=== PATIENT | female | born 1960 | race Caucasian/White ===

== ENCOUNTER → 2016-11-08 | Outpatient (CLI) | payer OTHER ==
[~2016-11-08] MED LIST: ATEN-173 PO; PRLSR20 PO; SPIR50TA2 PO
--- NOTE | 2016-11-08 16:55 | DIAGNOSTIC IMAGING REPORT ---
ULTRASOUND VENOUS DOPPLER LWR EXT BILA CLINICAL HISTORY: Leg swelling. Suspected bilateral DVT. LEG PAIN COMPARISON STUDY: No previous studies for comparison. FINDINGS: Real-time and color flow Doppler imaging were performed. Flow was seen within the femoral, popliteal and calf veins with no intraluminal thrombus demonstrated. The saphenous vein is patent. There is a small left popliteal cyst measuring 25 x 29 x 10 mm. IMPRESSION: No evidence of lower extremity DVT. Electronically signed by: Jerson Webb M.D. 11/08/2016 4:53 PM Dictated Date/Time: 11/08/2016 4:52 PM
== END | disposition home or self-care (01) ==
LOC: C.ULTR 16:07
PROVIDERS: ATTEND Internal Medicine Hematology
DX: I82.492 Acute embolism and thrombosis of other specified deep vein of left lower extremity (principal)

== ENCOUNTER 2019-09-08 13:29 | Observation (INO) ==
[2019-09-08] MEDS ORDERED: ONDANSETRON INJ 2 MG/ML 2 ML VIAL IV STA ×2 (14:07→18:29)
[2019-09-08] MEDS ORDERED: MoRPHine SULFATE 4 MG/ML 1 ML CARP\\VIAL IV STA ×2 (14:07→18:29)
[2019-09-08] MEDS ORDERED: SODIUM CHLORIDE 0.9% 1000ML 1,000 ML IV ONE (14:07)
[2019-09-08 14:36] LABS: Basophils # (auto) 0.01 K/uL (0-0.2); Basophils % (auto) 0.2 %; Hematocrit (blood only) 38.3 % (37-47); Hemoglobin 13.3 g/dL (12.0-16.0); Immature Granulocytes # (auto) 0.02 K/uL (0.00-0.02); Immature Granulocytes % (auto) 0.4 %; Lymphocytes # (auto) 0.63 K/uL (1.2-3.4); Lymphocytes % (auto) 11.4 %; Mean Corpuscular Hemoglobin 32.7 pg (25-34); Mean Corpuscular Hgb Conc 34.7 g/dL (32-36); Mean Corpuscular Volume 94.1 fL (80-100); Mean Platelet Volume 9.7 fL (7.4-10.4); Monocytes # (auto) 0.31 K/uL (0.11-0.59); Monocytes % (auto) 5.6 %; Neutrophils # (auto) 4.55 K/uL (1.4-6.5); Neutrophils % (auto) 82.4 %; Platelet Count 184 K/uL (130-400); RDW Coefficient of Variation 12.5 % (11.5-14.5); RDW Standard Deviation 42.7 fL (36.4-46.3); Red Blood Count 4.07 M/uL (4.2-5.4); White Blood Count 5.52 K/uL (4.8-10.8)
[2019-09-08 14:58] LABS: Albumin Level 3.8 gm/dl (3.4-5.0); BUN Creatinine Ratio 13.8 (10-20); Calcium 9.4 mg/dl (8.5-10.1); Est GFR (African American) 100.9; Est GFR (Non-African American) 87.1
[2019-09-08 15:00] LABS: Appearance Urine Clear (Clear); Bilirubin Urine Negative (Negative); Blood Urine Negative (Negative); Color Urine Dark Yellow; Glucose Urine UA Negative (Negative); Ketones Urine 1+ (Negative); Leukocyte Esterase Urine Negative (Negative); Nitrite Urine Negative (Negative); Protein Urine Negative (Negative); Specific Gravity Urine 1.025 (1.000-1.030); Urobilinogen Urine Negative (Negative); pH Urine 7.5 (4.5-7.5)
[2019-09-08 15:01] LABS: Bilirubin,Total 0.5 mg/dl (0.2-1); Globulin 3.6 gm/dl (2.5-4.0); Total Protein 7.4 gm/dl (6.4-8.2)
[2019-09-08] MEDS ORDERED: IOVERSOL 100ml IV PRN (16:18)
--- NOTE | 2019-09-08 16:51 | CT Scan Report ---
CT abd pelvis IV con only CT DOSE: 962.29 mGycm HISTORY: Pain diffuse ab pain TECHNIQUE: Multiaxial CT images of the abdomen and pelvis were performed following the use of intrave nous contrast. A dose lowering technique was utilized adhering to the principles of ALARA. COMPARISON STUDY: None. FINDINGS: Lung bases are clear. Liver spleen and pancreas are unremarkable. Mild gallbladder wall edematous change. No well-defined gallstones by CT criteria. Kidneys enhance uniformly. No evidence for hydronephrosis. Nonobstructive bowel pattern. Scattered colonic diverticulosis. No evidence for acute diverticulitis. Normal appendix. Bladder is midline. No free fluid within the abdominal or pelvic region. IMPRESSION: 1. Mild gallbladder wall edema versus trace amount of pericholecystic fluid. 2. Right upper quadrant ultrasonography is suggested. 3. Mild chronic colonic diverticulosis. 4. Study is otherwise negative The above report was generated using voice recognition software. It may contain grammatical, syntax or spelling errors. Electronically signed by: Neville Botello M.D. 09/08/2019 4:50 PM
--- NOTE | 2019-09-08 17:53 | Ultrasound Report ---
US gallbladder HISTORY: Abnormal CT exam. Pain. pericholecystic fluid on CT? ab pain COMPARISON: CT exam same date FINDINGS: Liver is uniform. Pancreas is unremarkable. Moderate edematous change of the gallbladder wall 6 mm. Trace amount of pericholecystic fluid. At least 2 small gallstones. Common bile duct 6 mm. Right kidney is negative for hydronephrosis. IMPRESSION: 1. Acute cholecystitis. 2. Normal caliber bile ducts. The above report was generated using voice recognition software. It may contain grammatical, syntax or spelling errors. Electronically signed by: Neville Botello M.D. 09/08/2019 5:52 PM
[2019-09-08] MEDS ORDERED: SODIUM CHLORIDE 0.9% 1000ML 1,000 ML IV SCH (18:30)
--- NOTE | 2019-09-08 19:49 | Emergency Department Note ---
Entered by Matilde Barrera acting as a scribe for History of Present Illness General Chief complaint: Abdominal Pain Stated complaint: ABDOMINAL PAIN AND BACK Time Seen by Provider: 09/08/19 13:50 Source: patient History of Present Illness Onset (ago): day(s) (last night) Location: abdomen Radiation: back Pain Consistency: + constant Maximum Pain Intensity: 8 Quality: + sharp Associated symptoms: + denies other symptoms (urinary symptoms), + loss of appetite and + nausea/vomiting The patient is a 59 year old female w/ PMHx gallstones, HTN, hysterectomy, endometrial adenocarcinoma, follicular lymphoma, constipation who presents to the ED w/ CC of constant abdominal pain starting last night. The patient states that she started having this upper abdominal pain that radiates down into her lower abdomen and all the way through to her entire back. She reports that it is a sharp pain and when it gets bad, she vomits. The patient notes that she has had constipation in the past, but moved her bowels yesterday and had a small bowel movement today. The patient complains of loss of appetite and nausea. She notes that she is still passing gas. The patient denies recent trauma, recent heavy lifting, urinary symptoms, taking anything for the pain, a history of a cholecystectomy, and a history of an appendectomy. Home Medications Home Medications Medication Instructions Recorded Confirmed Type atenolol 25 mg PO QAM 09/08/19 09/08/19 History multivitamin 1 tab PO HS 09/08/19 09/08/19 History omeprazole 20 mg PO QAM 09/08/19 09/08/19 History spironolactone 50 mg PO QAM 09/08/19 09/08/19 History Allergies Allergy/AdvReac Type Severity Reaction Status Date / Time lisinopril Allergy Intermediate Cough Verified 09/08/19 14:25 Past Med/Surg History Medical History Endometrial adenocarcinoma (Resolved 08/04/15) "DIAGNOSIS: Endometrial adenocarcinoma, FIGO Grade 2, FIGO stage IA Status post total abdominal hysterectomy bilateral salpingo-oophorectomy 09/29/2015 Status post completion of radiation therapy utilizing external beam therapy as well as HDR treatments received 4500 cGy external beam therapy and 1200 cGy HDR treatments completed 12/28/2015" On 11/01/15 16:08 Veeral Serrano wrote "DIAGNOSIS: Non-hodgkin's lymphoma, follicular lymphoma, grade 1/2, stage IAE -Involvement of the para-aortic and iliac lymph nodes" Follicular lymphoma (Chronic 08/04/15) "TREATMENT: [facility] - 09/29/2015 ([facility])DIAGNOSIS: Non-hodgkin's lymphoma, follicular lymphoma, grade 1/2, stage IAE -Involvement of the para-aortic and iliac lymph nodes" On 11/01/15 16:07 Jaynadavid Serrano wrote "DIAGNOSIS: Endometrial adenocarcinoma, FIGO Grade 2, FIGO stage IA TREATMENT: [facility] - 09/29/2015 ([facility])" History of gallstones HTN (hypertension) Hx of constipation Hx of hysterectomy Family History Other No significant family history Social History marital status: Current Living Situation: Spouse current occupational status: employed Feels Safe at Home: Yes Smoking Status: Never smoker Review of Systems See HPI for pertinent positives & negatives. and A total of 10 systems reviewed and were otherwise negative Physical Exam Vital Signs Vital Signs - 24 hr 09/08/19 13:31 09/08/19 14:43 09/08/19 16:11 Temperature 36.7 C Temperature Source Oral Pulse Rate 89 72 Pulse Rate [Apical] 67 Pulse Rate from SpO2 Sensor 72 Respiratory Rate 18 17 18 Respiratory Effort / Characteristics Non-Labored Spontaneous Non-Labored Respiratory Depth Normal Normal Blood Pressure 178/111 H 153/91 H Blood Pressure [Left Arm] 138/78 Blood Pressure Mean 133 108 Blood Pressure Mean [Left Arm] 98 Pulse Oximetry 97 92 98 Oxygen Delivery Method Room Air Room Air Sepsis Recent Fever Within 48 Hours No Sepsis New/Unexplained Change in Mental Status No Sepsis Action Taken by Nursing No Action Required 09/08/19 17:06 09/08/19 18:25 09/08/19 19:30 Temperature Temperature Source Pulse Rate Pulse Rate [Apical] 64 72 73 Pulse Rate from SpO2 Sensor Respiratory Rate 18 18 18 Respiratory Effort / Characteristics Non-Labored Non-Labored Respiratory Depth Normal Normal Blood Pressure Blood Pressure [Left Arm] 125/78 141/98 H 139/92 Blood Pressure Mean Blood Pressure Mean [Left Arm] 93 112 107 Pulse Oximetry 97 96 97 Oxygen Delivery Method Room Air Room Air Room Air Sepsis Recent Fever Within 48 Hours Sepsis New/Unexplained Change in Mental Status Sepsis Action Taken by Nursing GENERAL: Well appearing, well nourished, NAD, non-toxic. EYE EXAM: Normal conjunctiva. PERRL, no anisocoria and EOM's grossly intact w/o pain. OROPHARYNX: Moist mucous membranes. Grossly normal dentition. NECK: Supple, no nuchal rigidity, no adenopathy, non-tender. No signs of meningismus. LUNGS: Clear to auscultation. Normal chest wall mechanics. HEART: NSR, no MRG. ABDOMEN: Abdomen soft, mild diffuse abdominal pain worst in upper abdomen, not peritonitic, negative obturators, negative psoas, normo-active bowel sounds, no masses, no rebound or guarding. BACK: No CVA TTP. SKIN: No rashes and no bruising. UPPER EXTREMITIES: Upper extremities are grossly normal. LOWER EXTREMITIES: No pitting edema. No calf pain. NEURO EXAM: A&O x3, cranial nerves II-XII grossly intact, normal speech, moves all 4 extremities on command w/o issue. Course Course 1356: The patient was evaluated in room C11B. A complete history and physical exam was performed. 175: I reevaluated the patient and her pain is improved. I updated her on her test results and the treatment plan at this time. She verbally agrees and understands. 180: I discussed the patient's case with Dr. Sulma Alejandro Surgery. He recommends admitting the patient to medicine. 1827: I discussed the patient's case with Dr. [facility]. He requests that the patient be admitted under Dr. Juarez's service of General Surgery. 183: I discussed the patient's case with Dr. Sulma Alejandro Surgery. He will evaluate the patient for further management. Administered Medications Sodium Chloride (Nss 1000ml) 1,000 mls @ 125 mls/hr IV .Q8H BENNY Stop: 10/08/19 18:29 Last Admin: 09/08/19 18:38 Dose: 125 mls/hr Documented by: [id number] Ioversol (Optiray 320 100ml) 90 ml IV ONCE PRN PRN Reason: Interaction Checking Stop: 09/12/19 16:17 Last Admin: 09/08/19 16:20 Dose: 90 ml Documented by: [id number] Discontinued Medications Sodium Chloride (Nss 1000ml) 1,000 mls @ 999 mls/hr IV .Q1H1M ONE Stop: 09/08/19 15:07 Last Infusion: 09/08/19 15:37 Dose: 0 mls/hr Documented by: [id number] Admin: 09/08/19 14:37 Dose: 999 mls/hr Documented by: [id number] Morphine Sulfate (Morphine Sulfate) 4 mg IV NOW STA Stop: 09/08/19 14:08 Last Admin: 09/08/19 14:37 Dose: 4 mg Documented by: [id number] Morphine Sulfate (Morphine Sulfate) 4 mg IV NOW STA Stop: 09/08/19 18:30 Last Admin: 09/08/19 18:38 Dose: 4 mg Documented by: [id number] Ondansetron HCl (Zofran) 4 mg IV NOW STA Stop: 09/08/19 14:08 Last Admin: 09/08/19 14:37 Dose: 4 mg Documented by: [id number] Ondansetron HCl (Zofran) 4 mg IV NOW STA Stop: 09/08/19 18:30 Last Admin: 09/08/19 18:38 Dose: 4 mg Documented by: [id number] Medical Decision Making Differential Diagnosis Differential diagnoses includes but is not limited to gastritis, peptic ulcer disease, GERD, gallbladder disease, pancreatitis, small bowel obstruction, acute coronary syndrome, pericarditis, ischemic bowel, irritable bowel disease, irritable bowel syndrome, appendicitis, diverticulitis, malignancy, hernia, urinary tract infection, torsion, /ectopic , perforation, trauma, infectious. Medical Records Attestation: I reviewed the patient's medical records. Home Medications Current Medication List: was personally reviewed by me Laboratory Data Attestation: I reviewed the patient's lab results. Result diagrams: 09/08/19 14:20 09/08/19 14:20 Lab Results 09/08/19 09/08/19 09/08/19 Range/Units 14:20 14:20 14:39 WBC 5.52 (4.8-10.8) K/uL RBC 4.07 L (4.2-5.4) M/uL Hgb 13.3 (12.0-16.0) g/dL Hct 38.3 (37-47) % MCV 94.1 (80-100) fL MCH 32.7 (25-34) pg MCHC 34.7 (32-36) g/dL RDW Std Deviation 42.7 (36.4-46.3) fL RDW Coeff of Syed 12.5 (11.5-14.5) % Plt Count 184 (130-400) K/uL MPV 9.7 (7.4-10.4) fL Immature Gran % (Auto) 0.4 % Neut % (Auto) 82.4 % Lymph % (Auto) 11.4 % [place] % (Auto) 5.6 % Eos % (Auto) 0.0 % Baso % (Auto) 0.2 % Immature Gran # (Auto) 0.02 (0.00-0.02) K/uL Neut # (Auto) 4.55 (1.4-6.5) K/uL Lymph # (Auto) 0.63 L (1.2-3.4) K/uL [place] # (Auto) 0.31 (0.11-0.59) K/uL Eos # (Auto) 0.00 (0-0.5) K/uL Baso # (Auto) 0.01 (0-0.2) K/uL Sodium 134 L (136-145) mmol/L Potassium 4.0 (3.5-5.1) mmol/L Chloride 101 (98-107) mmol/L Carbon Dioxide 25 (21-32) mmol/L Anion Gap 8.0 (3-11) BUN 10 (7-18) mg/dl Creatinine 0.76 (0.6-1.2) mg/dl Est Cr Clr Drug Dosing 88.0 ml/min Est GFR ( Amer) 100.9 Est GFR (Non-Af Amer) 87.1 BUN/Creatinine Ratio 13.8 (10-20) Glucose 121 H (70-99) mg/dl Calcium 9.4 (8.5-10.1) mg/dl Total Bilirubin 0.5 (0.2-1) mg/dl AST 18 (15-37) U/L ALT 26 (12-78) U/L Alkaline Phosphatase 64 (45-117) U/L Total Protein 7.4 (6.4-8.2) gm/dl Albumin 3.8 (3.4-5.0) gm/dl Globulin 3.6 (2.5-4.0) gm/dl Albumin/Globulin Ratio 1.0 (0.9-2) Lipase 50 L (73-393) U/L Urine Color Dark Yellow Urine Appearance Clear (Clear) Urine pH 7.5 (4.5-7.5) Ur Specific [place] 1.025 (1.000-1.030) Urine Protein Negative (Negative) Urine Glucose (UA) Negative (Negative) Urine Ketones 1+ H (Negative) Urine Blood Negative (Negative) Urine Nitrite Negative (Negative) Urine Bilirubin Negative (Negative) Urine Urobilinogen Negative (Negative) Ur Leukocyte Esterase Negative (Negative) Imaging Data Radiologist's Impression: Radiology results as stated below per my review and the radiologist's interpretation: US gallbladder HISTORY: Abnormal CT exam. Pain. pericholecystic fluid on CT? ab pain COMPARISON: CT exam same date FINDINGS: Liver is uniform. Pancreas is unremarkable. Moderate edematous change of the gallbladder wall 6 mm. Trace amount of pericholecystic fluid. At least 2 small gallstones. Common bile duct 6 mm. Right kidney is negative for hydronephrosis. IMPRESSION: 1. Acute cholecystitis. 2. Normal caliber bile ducts. The above report was generated using voice recognition software. It may contain grammatical, syntax or spelling errors. Electronically signed by: Neville Botello M.D. 09/08/2019 5:[address] abd pelvis IV con only CT DOSE: 962.29 mGycm HISTORY: Pain diffuse ab pain TECHNIQUE: Multiaxial CT images of the abdomen and pelvis were performed following the use of intravenous contrast. A dose lowering technique was utilized adhering to the principles of ALARA. COMPARISON STUDY: None. FINDINGS: Lung bases are clear. Liver spleen and pancreas are unremarkable. Mild gallbladder wall edematous change. No well-defined gallstones by CT criteria. Kidneys enhance uniformly. No evidence for hydronephrosis. Nonobstructive bowel pattern. Scattered colonic diverticulosis. No evidence for acute diverticulitis. Normal appendix. Bladder is midline. No free fluid within the abdominal or pelvic region. IMPRESSION: 1. Mild gallbladder wall edema versus trace amount of pericholecystic fluid. 2. Right upper quadrant ultrasonography is suggested. 3. Mild chronic colonic diverticulosis. 4. Study is otherwise negative The above report was generated using voice recognition software. It may contain grammatical, syntax or spelling errors. Electronically signed by: Neville Botello M.D. 09/08/2019 4:50 PM Blood Pressure Blood Pressure Findings: Elevated blood pressure Blood Pressure Disposition: Referred to patients primary care provider CLARIBEL Narrative The patient is a 59 year old female w/ PMHx gallstones, HTN, hysterectomy, endometrial adenocarcinoma, follicular lymphoma, constipation who presents to the ED w/ CC of constant abdominal pain starting last night. Patient was seen and evaluated the bedside. The patient was complaining some abdominal pain. Patient blood work is unremarkable. Patient does not complain of any shortness of breath or chest pains. Patient did have a CT abdomen pelvis after receiving IV fluids and pain and not a nausea medication. She has stable vitals. The patient has a normal white count LFTs and lipase. Patient CT did show diverticulosis but more concerning some questionable pericholecystic fluid. Gallbladder ultrasound was ordered. This was concerning for acute cholecystitis. I did speak with both the hospitalist as well as the [facility]eral surgery service. General surgery will admit with a medicine consult. The patient was given additional medications told to be n.p.o. and started on IV fluids. Patient was admitted to general surgery. Impression & Plan Acute cholecystitis, Abdominal pain Discharge Plan Visit Data Chief Complaint: Abdominal Pain Stated Complaint: ABDOMINAL PAIN AND BACK ED Provider: Easton Augustine Discharge Problem: Acute cholecystitis, Abdominal pain Patient Disposition: Being Evaluated by Surgeon Forms Stand Alone Forms: Call Back Authorization, [facility] Prescriptions Prescriptions: No Action multivitamin Tablet 1 tab PO HS RF: 0 atenolol 25 mg tablet 25 mg PO QAM RF: 0 omeprazole 20 mg capsule,delayed release(DR/EC) 20 mg PO QAM RF: 0 spironolactone 50 mg tablet 50 mg PO QAM RF: 0 Referrals Referrals: Alta Bolanos DO [Primary Care Provider] - Discharge Problem: Abdominal pain Qualifiers: Abdominal location: generalized Qualified Code(s): R10.84 - Generalized abdominal pain The scribe's documentation has been prepared under my direction and personally reviewed by me in its entirety. I confirm that the note above accurately reflects all work, treatment, procedures, and medical decision making performed by me.
--- NOTE | 2019-09-08 19:57 | Surgery Consultation ---
Date of Consultation September 08, 2019 Assessment & Plan (1) Acute cholecystitis: pt is a 59 year old female who presents to ER with one day history RUQ pain, IMP: acute cholecystitis, cholelithiasis Plan, I recommend to admitted to hospital, NPO, IV fluid, antibiotic, control pain, to do laparoscopic cholecystectomy, possible open or cholangiogram tomorrow, D/W benefits, risks and alternatives of the surgery, the risks - infection, bleeding, injury CBD, biliary leak, may need ERCP, pt understood, she and her agree with the surgery, I answered all questions, Present on Admission?: Yes History of Present Illness History of Present Illness CC: RUQ pain HPI: pt is a 59 year-old female who presents to ER with one day history RUQ pain , the pain started at 7::00PM last night, the pain is located at RUQ and right back, pt denies nausea, no vomiting, no fever, no diarrhea, last BM today, pt had hysterectomy for cancer 4 mariya ago with abdominal lymph node resection, today, pt has been known that she has gallstone one mariya ago. pt had CT scan and U/S study diagnosis- acute cholecystitis with cholelithiasis, HTN history , otherwise pt is health. Allergies Allergy/AdvReac Type Severity Reaction Status Date / Time lisinopril Allergy Intermediate Cough Verified 09/08/19 14:25 Home Medications Home Medications Medication Instructions Recorded Confirmed Type atenolol 25 mg PO QAM 09/08/19 09/08/19 History multivitamin 1 tab PO HS 09/08/19 09/08/19 History omeprazole 20 mg PO QAM 09/08/19 09/08/19 History spironolactone 50 mg PO QAM 09/08/19 09/08/19 History Patient History Medical History Endometrial adenocarcinoma (Resolved 08/04/15) "DIAGNOSIS: Endometrial adenocarcinoma, FIGO Grade 2, FIGO stage IA Status post total abdominal hysterectomy bilateral salpingo-oophorectomy 09/29/2015 Status post completion of radiation therapy utilizing external beam therapy as well as HDR treatments received 4500 cGy external beam therapy and 1200 cGy HDR treatments completed 12/28/2015" On 11/01/15 16:08 Dhaval Serrano wrote "DIAGNOSIS: Non-hodgkin's lymphoma, follicular lymphoma, 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, stage IAE -Involvement of the para-aortic and iliac lymph nodes" Follicular lymphoma (Chronic 08/04/15) "TREATMENT: [facility] - 09/29/2015 [facility])DIAGNOSIS: Non-hodgkin's lymphoma, follicular lymphoma, 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, stage IAE -Involvement of the para-aortic and iliac lymph nodes" On 11/01/15 16:07 Jaynadavid Serrano wrote "DIAGNOSIS: Endometrial adenocarcinoma, FIGO Grade 2, FIGO stage IA TREATMENT: [facility] - 09/29/2015 ([facility])" History of gallstones HTN (hypertension) Hx of constipation Hx of hysterectomy Family History Other No significant family history Social History marital status: Current Living Situation: Spouse current occupational status: employed Feels Safe at Home: Yes Smoking Status: Never smoker Review of Systems Review of Systems: All systems reviewed & are unremarkable except as noted in HPI & below Physical Exam Constitutional: WD/WN, vitals as above well developed and well nourished ENMT: external ear and nose normal, oropharynx normal Neck: trachea midline, no thyromegaly Respiratory: normal respiratory effort, lungs clear to auscultation normal respiratory effort Cardiovascular: RRR, no murmur, no edema Rate/Rhythm: regular rate and regular rhythm Heart Sounds: normal S1 and normal S2 Gastrointestinal (Abdomen): normal bowel sounds, soft, nontender, no hepatosplenomegaly Percussion/Palpation: + abdomen tender and abdomen soft middle line scar, tenderness at RUQ, no rebound pain, no distend, BS +, Musculoskeletal: no cyanosis or clubbing, extremities motor strength 5/5 Skin: no rashes, warm and dry Neurologic: patellar DTR's 2+ bilat, sensation intact Psychiatric: Orientation: alert and oriented x 3 Lymphatic: no cervical or axillary lymphadenopathy Results & Data Vital Signs (Past 12 Hours) Vital Signs Temp Pulse Pulse Resp BP BP Pulse Ox 09/08/19 19:30 73 18 139/92 97 09/08/19 18:25 72 18 141/98 H 96 09/08/19 17:06 64 18 125/78 97 09/08/19 16:11 67 18 138/78 98 09/08/19 14:43 72 17 153/91 H 92 09/08/19 13:31 36.7 C 89 18 178/111 H 97 Laboratory Results Abnormal lab results 09/08/19 09/08/19 09/08/19 Range/Units 14:20 14:20 14:39 RBC 4.07 L (4.2-5.4) M/uL Lymph # (Auto) 0.63 L (1.2-3.4) K/uL Sodium 134 L (136-145) mmol/L Glucose 121 H (70-99) mg/dl Lipase 50 L (73-393) U/L Urine Ketones 1+ H (Negative) Diagnostic Findings US gallbladder HISTORY: Abnormal CT exam. Pain. pericholecystic fluid on CT? ab pain COMPARISON: CT exam same date FINDINGS: Liver is uniform. Pancreas is unremarkable. Moderate edematous change of the gallbladder wall 6 mm. Trace amount of pericholecystic fluid. At least 2 small gallstones. Common bile duct 6 mm. Right kidney is negative for hydronephrosis. IMPRESSION: 1. Acute cholecystitis. 2. Normal caliber bile ducts. CT abd pelvis IV con only CT DOSE: 962.29 mGycm HISTORY: Pain diffuse ab pain TECHNIQUE: Multiaxial CT images of the abdomen and pelvis were performed following the use of intravenous contrast. A dose lowering technique was utilized adhering to the principles of ALARA. COMPARISON STUDY: None. FINDINGS: Lung bases are clear. Liver spleen and pancreas are unremarkable. Mild gallbladder wall edematous change. No well-defined gallstones by CT criteria. Kidneys enhance uniformly. No evidence for hydronephrosis. Nonobstructive bowel pattern. Scattered colonic diverticulosis. No evidence for acute diverticulitis. Normal appendix. Bladder is midline. No free fluid within the abdominal or pelvic region. IMPRESSION: 1. Mild gallbladder wall edema versus trace amount of pericholecystic fluid. 2. Right upper quadrant ultrasonography is suggested. 3. Mild chronic colonic diverticulosis. 4. Study is otherwise negative
[2019-09-08] MEDS ORDERED: OXYCODONE/ACETAMINOPHEN 5mg/325mg TAB PO PRN (21:01)
[2019-09-08] MEDS ORDERED: PIPERACILL/TAZOBAC CONSULT ACTIVE PRN (21:01)
[2019-09-08] MEDS ORDERED: HYDROmorphone INJ 0.5 MG/0.5 ML SYR IV PRN (21:01)
[2019-09-08] MEDS ORDERED: PIPERACILLIN/TAZOBACTAM 3.375 GM in DEXTROSE 5% 100 ML IV ONE (21:15)
[2019-09-08] MEDS: LACTATED RINGER'S 1,000 ML IV SCH (21:21)
[2019-09-08 21:29] LABS: Basophils # (auto) 0.01 K/uL (0-0.2); Basophils % (auto) 0.2 %; Eosinophils # (auto) 0.02 K/uL (0-0.5); Eosinophils % (auto) 0.4 %; Hemoglobin 13.3 g/dL (12.0-16.0); Immature Granulocytes # (auto) 0.01 K/uL (0.00-0.02); Immature Granulocytes % (auto) 0.2 %; Lymphocytes # (auto) 1.04 K/uL (1.2-3.4); Mean Corpuscular Hemoglobin 32.8 pg (25-34); Mean Corpuscular Hgb Conc 34.1 g/dL (32-36); Mean Corpuscular Volume 96.1 fL (80-100); Mean Platelet Volume 9.7 fL (7.4-10.4); Monocytes # (auto) 0.35 K/uL (0.11-0.59); Monocytes % (auto) 7.1 %; Neutrophils # (auto) 3.52 K/uL (1.4-6.5); Neutrophils % (auto) 71.1 %; Platelet Count 169 K/uL (130-400); RDW Coefficient of Variation 12.7 % (11.5-14.5); RDW Standard Deviation 44.1 fL (36.4-46.3); Red Blood Count 4.06 M/uL (4.2-5.4); White Blood Count 4.95 K/uL (4.8-10.8)
[2019-09-08] MEDS: MULTIVITAMIN TAB PO SCH (22:06)
[2019-09-09] MEDS: PIPERACILLIN/TAZOBACTAM 3.375 GM in DEXTROSE 5% 100 ML IV SCH ×2 (03:37→12:32)
[2019-09-09 06:09] LABS: Basophils # (auto) 0.01 K/uL (0-0.2); Basophils % (auto) 0.3 %; Eosinophils # (auto) 0.03 K/uL (0-0.5); Hematocrit (blood only) 36.4 % (37-47); Hemoglobin 12.3 g/dL (12.0-16.0); Lymphocytes # (auto) 0.67 K/uL (1.2-3.4); Lymphocytes % (auto) 21.8 %; Mean Corpuscular Hemoglobin 32.6 pg (25-34); Mean Corpuscular Hgb Conc 33.8 g/dL (32-36); Mean Corpuscular Volume 96.6 fL (80-100); Mean Platelet Volume 9.6 fL (7.4-10.4); Monocytes % (auto) 9.8 %; Neutrophils # (auto) 2.06 K/uL (1.4-6.5); Neutrophils % (auto) 67.1 %; Platelet Count 158 K/uL (130-400); RDW Standard Deviation 45.2 fL (36.4-46.3); Red Blood Count 3.77 M/uL (4.2-5.4); White Blood Count 3.07 K/uL (4.8-10.8)
[2019-09-09 06:39] LABS: Albumin Level 3.2 gm/dl (3.4-5.0); BUN Creatinine Ratio 9.9 (10-20); Bilirubin,Total 0.8 mg/dl (0.2-1); Calcium 8.8 mg/dl (8.5-10.1); Creatinine Clr Calc Pharmacy 82.5 ml/min; Est GFR (African American) 93.4; Est GFR (Non-African American) 80.6; Globulin 3.2 gm/dl (2.5-4.0); Potassium 3.4 mmol/L (3.5-5.1); Total Protein 6.4 gm/dl (6.4-8.2)
[2019-09-09] MEDS: SPIRONOLACTONE 25 MG TAB PO SCH (08:38)
[2019-09-09] MEDS: ATENOLOL 25 MG TABLET PO SCH (08:38)
[2019-09-09] MEDS: PANTOprazole 40 MG TAB PO SCH (08:38)
[2019-09-09] MEDS: LACTATED RINGER'S 1,000 ML IV SCH ×2 (09:36→17:59)
--- NOTE | 2019-09-09 10:14 | Anesthesiology Consultation ---
Date of Service September 09, 2019 Assessment & Plan Chart Review Chart Review: Acceptable Risk for Surgery and Patient NOT seen in Pre Admission Testing Consults Requested none ASA ASA3 Proposed Anesthesia Anesthesia Type: General History Surgery Operation Date: 09/09/19 07:00 Proposed Procedures p Laparoscopic Cholecystectomy - Dl Juarez MD Height/Weight Height: 5 ft 4 in Weight: 88.5 kg Allergies Allergy/AdvReac Type Severity Reaction Status Date / Time lisinopril Allergy Intermediate Cough Verified 09/08/19 14:25 Medications Home Medications Medication Instructions Recorded Confirmed Last Taken atenolol 25 mg PO QAM 09/08/19 09/08/19 09/07/19 multivitamin 1 tab PO HS 09/08/19 09/08/19 09/07/19 omeprazole 20 mg PO QAM 09/08/19 09/08/19 09/07/19 spironolactone 50 mg PO QAM 09/08/19 09/08/19 09/07/19 Active Medications Generic Name Dose Route Start Last Admin Trade Name Freq PRN Reason Stop Dose Admin Atenolol 25 mg 09/09/19 09:00 09/09/19 08:38 Tenormin PO 10/09/19 08:59 25 mg QAM BENNY Administration Lactated Ringer's 1,000 mls @ 80 mls/hr 09/08/19 21:01 09/09/19 09:36 Lr IV 10/08/19 21:00 80 mls/hr .[id number] BENNY Administration Piperacillin Sod/Tazobactam 115 mls @ 28.75 mls/hr 09/09/19 03:00 09/09/19 07:54 Sod 3.375 gm/ Dextrose IV 09/11/19 02:59 Infused Q8H BENNY Infusion Protocol Ioversol 90 ml 09/08/19 16:18 09/08/19 16:20 Optiray 320 100ml IV 09/12/19 16:17 90 ml ONCE PRN Administration Interaction Checking Multivitamins 1 tab 09/08/19 21:01 09/08/19 22:06 Multivitamin Tab PO 10/08/19 21:00 1 tab HS BENNY Administration Pantoprazole Sodium 40 mg 09/09/19 09:00 09/09/19 08:38 Protonix PO 10/09/19 08:59 40 mg QAM BENNY Administration Spironolactone 50 mg 09/09/19 09:00 09/09/19 08:38 Aldactone PO 10/09/19 08:59 50 mg QAM BENNY Administration NPO Date Last Intake of Fluids: 09/08/19 Time Last Intake of Fluids: 23:22 Date Last Intake of Solids: 09/08/19 Time Last Intake of Solids: 17:00 Past Medical History Medical History Endometrial adenocarcinoma (Resolved 08/04/15) "DIAGNOSIS: Endometrial adenocarcinoma, FIGO Grade 2, FIGO stage IA Status post total abdominal hysterectomy bilateral salpingo-oophorectomy 09/29/2015 Status post completion of radiation therapy utilizing external beam therapy as well as HDR treatments received 4500 cGy external beam therapy and 1200 cGy HDR treatments completed 12/28/2015" On 11/01/15 16:08 Dhaval Serrano wrote "DIAGNOSIS: Non-hodgkin's lymphoma, follicular lymphoma, 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, stage IAE -Involvement of the para-aortic and iliac lymph nodes" Follicular lymphoma (Chronic 08/04/15) "TREATMENT: [facility] - 09/29/2015 ([facility])DIAGNOSIS: Non-hodgkin's lymphoma, follicular lymphoma, 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, stage IAE -Involvement of the para-aortic and iliac lymph nodes" On 11/01/15 16:07 Dhaval Serrano wrote "DIAGNOSIS: Endometrial adenocarcinoma, FIGO Grade 2, FIGO stage IA TREATMENT: [facility]AHBSO - 09/29/2015 ([facility])" History of gallstones HTN (hypertension) Hx of constipation Hx of hysterectomy Exercise / Class Metabolic Activity II 4-5 Yardwork/Stairs/Walk up hill Past Family History Family History Other No significant family history Past Anesthesia History No Hx of Anesthesia Complications and No Family Hx of Anesthesia Complications History of PONV No Hx of PONV and No Hx of Motion Sickness Social History Smoking Status: Former smoker Smoking End Date: 1999 Hx Alcohol Use: Yes alcohol intake frequency: holidays/special occasions only Hx Substance Use: No Physical Exam Vital Signs Last Vital Signs Temp 36.7 C 09/09/19 06:54 Pulse 70 09/09/19 06:54 Resp 16 09/09/19 06:54 BP 121/76 09/09/19 06:54 Pulse Ox 94 09/09/19 06:54 Testing Laboratory Results 09/09/19 05:37 09/09/19 05:37 Urine Color Dark Yellow 09/08/19 14:39 Urine Appearance Clear (Clear) 09/08/19 14:39 Urine pH 7.5 (4.5-7.5) 09/08/19 14:39 Ur Specific [place] 1.025 (1.000-1.030) 09/08/19 14:39 Urine Protein Negative (Negative) 09/08/19 14:39 Urine Glucose (UA) Negative (Negative) 09/08/19 14:39 Urine Ketones 1+ (Negative) H 09/08/19 14:39 Urine Nitrite Negative (Negative) 09/08/19 14:39 Ur Leukocyte Esterase Negative (Negative) 09/08/19 14:39
[2019-09-09] MEDS ORDERED: fentaNYL citrate 100 MCG/2 ML VIAL ONE ×2 (12:52→14:36)
[2019-09-09] MEDS ORDERED: MIDAZOLAM HCL 1 MG/ML 2ML VIAL ONE (12:52)
[2019-09-09] MEDS ORDERED: LIDOCAINE HCL 2% 2 ML VIAL/AMP(20MG/ML) INFIL ONE (12:53)
[2019-09-09] MEDS ORDERED: ROCURONIUM BROMIDE 10 MG/ML 5 ML VIAL ONE (12:53)
[2019-09-09] MEDS ORDERED: DEXAMETHASONE SOD INJ 4 MG/ML VIAL ONE (12:53)
[2019-09-09] MEDS ORDERED: ONDANSETRON INJ 2 MG/ML 2 ML VIAL ONE (12:53)
[2019-09-09] MEDS ORDERED: PROPOFOL IV EMULSION 10 MG/ML 20 ML VIAL IV ONE (12:53)
[2019-09-09] MEDS ORDERED: ACETAMINOPHEN 1000 MG/100 ML IV IV ONE (12:55)
[2019-09-09] MEDS ORDERED: BACITRACIN OINT 15 GM TUBE ONE (12:56)
[2019-09-09] MEDS ORDERED: LIDOCAINE HCL 1% 20 ML VIAL ONE (12:57)
[2019-09-09] MEDS ORDERED: BUPIVACAINE 0.5 % 5 MG/1 ML MPF 30ML VIAL ONE (12:57)
--- NOTE | 2019-09-09 13:06 | History & Physical Bridge Note ---
Date of Service September 09, 2019 History & Physical Bridge Note I have examined the patient, reviewed the History & Physical and in the interval since the performance of the History & Physical I have noted the following changes of clinical significance: no changes noted
[2019-09-09] MEDS ORDERED: CEFAZOLIN 2,000 MG/15 ML IV PUSH IV ONE (13:10)
[2019-09-09] MEDS ORDERED: CEFAZOLIN 2000MG 2,000 MG/15 ML SYR IV ONE (13:15)
[2019-09-09] MEDS ORDERED: FLUMAZENIL 0.1 MG/1 ML 10 ML VIAL IV PRN (13:35)
[2019-09-09] MEDS ORDERED: NALOXONE HCL 0.4 MG/1 ML VIAL/CARP IV PRN (13:35)
[2019-09-09] MEDS ORDERED: PROMETHAZINE HCL 12.5 MG in SODIUM CHLORIDE 0.9% 50 ML IV PRN (13:35)
[2019-09-09] MEDS ORDERED: ONDANSETRON INJ 2 MG/ML 2 ML VIAL IV PRN ×2 (13:35→17:54)
[2019-09-09] MEDS ORDERED: ePHEDrine sulfate 50 MG/ML AMP IV PRN (13:35)
[2019-09-09] MEDS ORDERED: ATROPINE SULFATE 0.1 MG/ML 10ML SYR IV PRN (13:35)
[2019-09-09] MEDS ORDERED: LABETALOL HCL IV 5 MG/ML 20ML IV PRN (13:35)
[2019-09-09] MEDS ORDERED: LABETALOL HCL IV 5 MG/ML 20ML IV ONE (14:20)
[2019-09-09] MEDS ORDERED: GLYCOPYRROLATE 0.2 MG/ML VIAL ONE (14:38)
[2019-09-09] MEDS ORDERED: NEOSTIGMINE METHYLSULFATE 5 MG/5 ML SYR ONE (14:38)
--- NOTE | 2019-09-09 14:46 | Post Operative Brief Note ---
Immediate Post Op Note v1 Date of Surgery September 09, 2019 Pre & Post Diagnosis Operation Date: 09/09/19 07:00 Pre-Op Diagnosis: ACUTE CHOLECYSTITIS Post-Op Diagnosis: ACUTE CHOLECYSTITIS I identified the patient and participated in the time-out.: Yes Procedure Operation Date: 09/09/19 07:00 Actual Procedures p Laparoscopic Cholecystectomy - Dl Juarez MD Surgeon Dl Juarez MD [employer] STEVIE Bravo Estimated Blood Loss 15 Findings Consistent with Post-Op Diagnosis Fluids 800ml Specimens gallbladder Anesthesia Type General Complications none Disposition Accompanied Patient To Recovery: Yes Disposition: Recovery Room Overlapping Procedure I was immediately available: during the entire case.
[2019-09-09] MEDS: fentaNYL citrate 100 MCG/2 ML VIAL IV PRN ×4 (15:16→15:31)
--- NOTE | 2019-09-09 15:32 | Operative Report ---
DATE OF OPERATION: 09/09/2019 PREOPERATIVE DIAGNOSES: Acute cholecystitis, cholelithiasis. POSTOPERATIVE DIAGNOSES: Acute cholecystitis, cholelithiasis. OPERATION: Laparoscopic cholecystectomy. SURGEON: Dl Juarez MD. ANESTHESIA: General. MANAGER BALANCE: Nuria Kemp PA-C. ESTIMATED BLOOD LOSS: About 15 mL. FINDINGS: Acute cholecystitis with cholelithiasis. COMPLICATIONS: None. INDICATIONS FOR THE PROCEDURE: This is a 59-year-old female who was admitted to the hospital for acute cholecystitis with gallstone and patient is required to do laparoscopic cholecystectomy, possible open, possible cholangiogram. I did talk to the patient about the benefit, risk, and alternate procedure. I indicated the risks may include but not limited to such as bleeding, infection, injury to common bile duct, bile leak, may need ERCP. The patient understands. She signed informed consent and I answered all questions. DETAILS OF PROCEDURE: We brought the patient to the OR, put the patient in the supine position. The patient received SCD on bilateral legs to prevent DVT and the patient received 3.375 g of Zosyn IV for prophylactic antibiotic. The patient received general anesthesia without difficulty. His abdomen was prepped and draped in routine sterile fashion. After timeout, I injected local anesthesia by using 1% lidocaine mixed with 0.5% Marcaine just above the umbilicus. Then, I made a small incision just above the umbilicus, opened fascia and opened peritoneum under direct vision, put a Ton trocar in, connected to CO2 to create pneumoperitoneum, flow rate is 6 liter per minute, pressure not more than 14 mmHg. Once we got a nice pneumoperitoneum, we put the camera in, looked around the abdomen, shows normal finding on the liver. However, the gallbladder showed significant inflammation on the gallbladder wall, gallbladder wall thickening and edema, confirmed the diagnosis of acute cholecystitis. Then, we put another three 5 mm trocars on the right upper quadrant. Once all trocars in, we put a grasper to hold the gallbladder, put in the direction to the diaphragm and peeled down the omental adhesion to the gallbladder. Then, we used another grasper to hold the pouch of gallbladder, put the lateral to expose the triangle of Calot. The cystic duct was identified and mobilized. Then, I put two 5 mm metal clips on the proximal cystic duct, one on the distal cystic duct and used scissors for transection of cystic duct. Rechecked, no bile leak. Then, the cystic artery was identified and mobilized. I put two 5 mm metal clips on the proximal cystic artery, one on the distal cystic artery, and used scissors for transection of cystic artery. Rechecked, no active bleeding. Then, we used the Bovie to take down gallbladder from the liver bed. Rechecked, no active bleeding, no bile leak. Then, we removed gallbladder through the catch bag and then we reinserted Ton trocar in, connected to CO2 to create pneumoperitoneum, again looked around the abdomen, no active bleeding, no bile leak from the liver bed. Then, we removed all trocars under direct vision. No active bleeding from the trocar site. Pneumoperitoneum was released. Then, we closed the umbilical incision fascial layer by using #1 Vicryl [id number] x2, closed subcutaneous layer by using 2-0 Vicryl interruptedly, closed skin by using 4-0 Vicryl continuous running, closed another three 5 mm trocar site skin only by using 4-0 Vicryl. Then, we put the dressing on. The patient tolerated the procedure well. All instrument, needle and sponge count were correct x2 at the end of the case. The patient was transferred to recovery room in stable condition. The specimen was sent to pathology. After the procedure, I did talk to the patient and family member about the OR finding and the procedure we did, they understand. I attest to the content of the Intraoperative Record and any orders documented therein. Any exception s are noted below.
[2019-09-09] MEDS ORDERED: HYDROmorphone INJ 0.5 MG/0.5 ML SYR IV PRN ×2 (15:35→16:54)
[2019-09-09] MEDS ORDERED: HYDROmorphone INJ 0.5 MG/0.5 ML SYR ONE (15:37)
[2019-09-09] MEDS: HYDROmorphone INJ 0.5 MG/0.5 ML SYR IV PRN ×10 (15:39→17:10)
[2019-09-09] MEDS ORDERED: KETOROLAC 30 MG/ML VIAL ONE (16:09)
[2019-09-09] MEDS ORDERED: KETOROLAC 30 MG/ML VIAL IV ONE (16:09)
[2019-09-09] MEDS ORDERED: PROMETHAZINE HCL 12.5 MG in SODIUM CHLORIDE 0.9% 50 ML IV STA (16:54)
--- NOTE | 2019-09-09 17:44 | Anesthesiology Progress Note ---
Date of Service September 09, 2019 Anesthesia Post Procedure Vital Signs Vital Signs: Temp Pulse Pulse Pulse Resp BP Pulse Ox 09/09/19 17:25 36.8 C 72 22 116/98 96 09/09/19 17:15 36.8 C 58 L 13 120/81 95 09/09/19 17:05 36.8 C 77 25 H 140/90 96 09/09/19 16:55 36.8 C 57 L 13 131/89 96 09/09/19 16:45 36.8 C 57 L 13 140/100 97 09/09/19 16:35 36.8 C 74 22 147/92 H 97 09/09/19 16:25 36.8 C 56 L 19 159/90 H 96 09/09/19 16:15 36.8 C 57 L 22 169/89 H 97 09/09/19 16:05 36.8 C 56 L 23 161/90 H 97 09/09/19 15:55 58 L 22 167/95 H 94 09/09/19 15:45 59 L 19 177/91 H 96 09/09/19 15:35 59 L 18 182/96 H 97 09/09/19 15:25 36.4 C L 60 19 168/91 H 97 09/09/19 15:15 36.4 C L 55 L 14 185/107 H 100 09/09/19 15:06 36.4 C L 73 16 169/104 H 96 09/09/19 06:54 36.7 C 70 16 121/76 94 09/08/19 23:20 36.7 C 69 16 130/82 98 09/08/19 21:04 36.6 C 67 16 137/84 98 09/08/19 20:30 70 18 127/74 96 09/08/19 19:30 73 18 139/92 97 09/08/19 18:25 72 18 141/98 H 96 Pain Intensity Left Abdomen: Pain Intensity: 4 Transfer of Care Handoff Completed per policy Notes Mental Status: alert / awake / arousable Patient Amnestic to Procedure: Yes Nausea / Vomiting: adequately controlled Pain: adequately controlled Airway Patency, RR, SpO2: stable & adequate BP & HR: stable & adequate Hydration State: stable & adequate Anesthetic Complications: no major complications apparent
--- NOTE | 2019-09-09 17:55 | Anesthesiology Progress Note ---
Date of Service September 09, 2019 Anesthesia Post Procedure Vital Signs Vital Signs: Temp Pulse Pulse Pulse Resp BP Pulse Ox 09/09/19 17:35 36.8 C 58 L 25 H 117/86 97 09/09/19 17:25 36.8 C 72 22 116/98 96 09/09/19 17:15 36.8 C 58 L 13 120/81 95 09/09/19 17:05 36.8 C 77 25 H 140/90 96 09/09/19 16:55 36.8 C 57 L 13 131/89 96 09/09/19 16:45 36.8 C 57 L 13 140/100 97 09/09/19 16:35 36.8 C 74 22 147/92 H 97 09/09/19 16:25 36.8 C 56 L 19 159/90 H 96 09/09/19 16:15 36.8 C 57 L 22 169/89 H 97 09/09/19 16:05 36.8 C 56 L 23 161/90 H 97 09/09/19 15:55 58 L 22 167/95 H 94 09/09/19 15:45 59 L 19 177/91 H 96 09/09/19 15:35 59 L 18 182/96 H 97 09/09/19 15:25 36.4 C L 60 19 168/91 H 97 09/09/19 15:15 36.4 C L 55 L 14 185/107 H 100 09/09/19 15:06 36.4 C L 73 16 169/104 H 96 09/09/19 06:54 36.7 C 70 16 121/76 94 09/08/19 23:20 36.7 C 69 16 130/82 98 09/08/19 21:04 36.6 C 67 16 137/84 98 09/08/19 20:30 70 18 127/74 96 09/08/19 19:30 73 18 139/92 97 09/08/19 18:25 72 18 141/98 H 96 Pain Intensity Left Abdomen: Pain Intensity: 4 Transfer of Care Handoff Completed per policy Notes Mental Status: alert / awake / arousable and participated in evaluation Patient Amnestic to Procedure: Yes Nausea / Vomiting: adequately controlled Pain: adequately controlled Airway Patency, RR, SpO2: stable & adequate BP & HR: stable & adequate Hydration State: stable & adequate Anesthetic Complications: no major complications apparent and Pt Satisfied with anesthetic care
[2019-09-09] MEDS: MULTIVITAMIN TAB PO SCH (21:38)
[2019-09-10] MEDS: LACTATED RINGER'S 1,000 ML IV SCH (05:22)
--- NOTE | 2019-09-10 08:00 | Anesthesiology Progress Note ---
Date of Service September 10, 2019 Anesthesia Post Procedure Vital Signs Vital Signs: Temp Pulse Pulse Resp BP Pulse Ox Pulse Ox 09/10/19 07:30 36.7 C 71 18 137/74 94 09/10/19 02:54 36.7 C 81 14 131/75 94 09/09/19 23:40 91 09/09/19 23:31 94 09/09/19 23:09 36.4 C L 85 16 103/65 95 09/09/19 21:18 36.7 C 88 16 111/72 95 09/09/19 20:26 36.6 C 86 16 108/69 95 09/09/19 19:04 36.3 C L 66 16 96/67 L 98 09/09/19 18:27 83 17 147/88 H 97 09/09/19 18:00 36.4 C L 63 16 121/80 98 09/09/19 17:35 36.8 C 58 L 25 H 117/86 97 09/09/19 17:25 36.8 C 72 22 116/98 96 09/09/19 17:15 36.8 C 58 L 13 120/81 95 09/09/19 17:05 36.8 C 77 25 H 140/90 96 09/09/19 16:55 36.8 C 57 L 13 131/89 96 09/09/19 16:45 36.8 C 57 L 13 140/100 97 09/09/19 16:35 36.8 C 74 22 147/92 H 97 09/09/19 16:25 36.8 C 56 L 19 159/90 H 96 09/09/19 16:15 36.8 C 57 L 22 169/89 H 97 09/09/19 16:05 36.8 C 56 L 23 161/90 H 97 09/09/19 15:55 58 L 22 167/95 H 94 09/09/19 15:45 59 L 19 177/91 H 96 09/09/19 15:35 59 L 18 182/96 H 97 09/09/19 15:25 36.4 C L 60 19 168/91 H 97 09/09/19 15:15 36.4 C L 55 L 14 185/107 H 100 09/09/19 15:06 36.4 C L 73 16 169/104 H 96 Pain Intensity Left Abdomen: Pain Intensity: 2 Notes Mental Status: alert / awake / arousable Patient Amnestic to Procedure: Yes Nausea / Vomiting: adequately controlled Pain: adequately controlled Airway Patency, RR, SpO2: stable & adequate BP & HR: stable & adequate Hydration State: stable & adequate Anesthetic Complications: no major complications apparent
[2019-09-10 08:33] LABS: Hematocrit (blood only) 35.3 % (37-47); Hemoglobin 12.2 g/dL (12.0-16.0); Mean Corpuscular Hemoglobin 33.2 pg (25-34); Mean Corpuscular Hgb Conc 34.6 g/dL (32-36); Mean Corpuscular Volume 96.2 fL (80-100); Mean Platelet Volume 9.4 fL (7.4-10.4); Platelet Count 167 K/uL (130-400); RDW Coefficient of Variation 12.9 % (11.5-14.5); RDW Standard Deviation 45.1 fL (36.4-46.3); Red Blood Count 3.67 M/uL (4.2-5.4); White Blood Count 5.82 K/uL (4.8-10.8)
[2019-09-10] MEDS: PANTOprazole 40 MG TAB PO SCH (08:39)
[2019-09-10] MEDS: SPIRONOLACTONE 25 MG TAB PO SCH (08:39)
[2019-09-10] MEDS: ATENOLOL 25 MG TABLET PO SCH (08:39)
[2019-09-10 09:01] LABS: Albumin Level 3.2 gm/dl (3.4-5.0); BUN Creatinine Ratio 8.9 (10-20); Calcium 9.3 mg/dl (8.5-10.1); Creatinine Clr Calc Pharmacy 83.6 ml/min; Est GFR (African American) 94.9; Est GFR (Non-African American) 81.8; Potassium 3.7 mmol/L (3.5-5.1)
[2019-09-10 09:04] LABS: Bilirubin,Total 0.4 mg/dl (0.2-1); Globulin 3.4 gm/dl (2.5-4.0); Total Protein 6.6 gm/dl (6.4-8.2)
--- NOTE | 2019-09-10 13:56 | Discharge Summary ---
ADMITTING DIAGNOSIS: Acute cholecystitis, cholelithiasis. DISCHARGE DIAGNOSIS: Same. OPERATION: Laparoscopic cholecystectomy. SURGEON: Dl Juarez MD DETAILS OF DISCHARGE SUMMARY: This is a 59-year-old female who was admitted to the hospital for acute cholecystitis, cholelithiasis and the patient was admitted to hospital overnight. I gave her IV fluid, IV antibiotic to control the pain and next day on 09/09/2019 we took the patient to the OR. We did a laparoscopic cholecystectomy. The patient tolerated the procedure well and after procedure the patient transferred to recovery room in stable condition. Later on patient transferred to regular floor. The patient is doing fine. No significant abdominal pain, no nausea, no vomiting. PHYSICAL EXAMINATION: VITAL SIGNS: Temperature is 36.7, heart rate 71, respiratory rate 18, and the blood pressure 137/74, O2 saturation 94% on room air. GENERAL: The patient is alert, awake, oriented x3. HEENT: Within normal limitation. NEUROLOGIC: Intact. NECK: No JVD. CHEST: Bilateral lungs sound clear. HEART: Normal S1, S2. No murmur. ABDOMEN: Soft and nondistended, mild tenderness on the incision site. All incisions intact. No drainage, no redness. Bowel sounds positive. EXTREMITIES: No edema. PLAN: The patient wanted to go home today. We gave the patient postop care instruction. The patient understands. I will follow up with the patient in 2 weeks.
== END 2019-09-10 13:00 | disposition home or self-care (01) ==
LOC: ED 13:29 → 3E 13:29